=== PATIENT | female | born 1990 | race African-American/Black ===

== ENCOUNTER 2016-08-18 09:47 | Emergency (ER) | payer BC, OTHER ==
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
[2016-08-18] MEDS ORDERED: ACETAMINOPHEN 325 MG TABLET PO ONE (10:40)
[2016-08-18 11:15] LABS: APPEARANCE,URINE CLEAR; BILIRUBIN,URINE NEGATIVE (NEGATIVE); GLUCOSE, URINE NEGATIVE (NEGATIVE); KETONES,URINE NEGATIVE (NEGATIVE); LEUKOCYTE ESTERASE,URINE NEGATIVE (NEGATIVE); NITRITE,URINE NEGATIVE (NEGATIVE); PROTEIN,URINE NEGATIVE (NEGATIVE); URINE SPECIFIC GRAVITY 1.016; UROBILINOGEN,URINE NEGATIVE mg/dL (<2.0)
[2016-08-18 12:59] VITALS: BP 110/68
== END 2016-08-18 13:00 | disposition home or self-care (01) ==
LOC: ER 09:47
DX: R07.81 Pleurodynia (principal); M54.5 Low back pain
CPT/HCPCS: 81001; 87086; 99283

== ENCOUNTER 2017-09-04 08:29 | Emergency (ER) | payer OTHER, MEDICAID ==
[2017-09-04] MEDS ORDERED: NORMAL SALINE 1000 ML 1,000 ML IV ONE (08:50)
--- NOTE | 2017-09-04 09:03 | EKG REPORT ---
SEVERITY:- ABNORMAL ECG - SINUS RHYTHM NONSPECIFIC T ABNORMALITIES, ANTERIOR LEADS : Confirmed by: Mar Rosenthal 04-Sep-2017 09:01:59
[2017-09-04 09:12] LABS: ALANINE AMINOTRANSFERASE 21 U/L (9-52); ALBUMIN 3.7 g/dL (3.5-5.0); ALKALINE PHOSPHATASE 26 U/L (38-126); ANION GAP 8 (5-19); ASPARTATE AMINO TRANSFERASE 32 U/L (14-36); BILIRUBIN,DIRECT 0.4 mg/dL (0.0-0.4); BILIRUBIN,TOTAL 0.8 mg/dL (0.2-1.3); BLOOD UREA NITROGEN 12 mg/dL (7-20); CALCIUM 8.8 mg/dL (8.4-10.2); CARBON DIOXIDE 21 mmol/L (22-30); CHLORIDE 108 mmol/L (98-107); CREATINE KINASE 101 U/L (30-135); GLUCOSE 100 mg/dL (75-110); POTASSIUM 3.8 mmol/L (3.6-5.0); SODIUM 137.1 mmol/L (137-145); TOTAL PROTEIN 7.1 g/dL (6.3-8.2)
[2017-09-04 09:15] LABS: ABSOLUTE LYMPHOCYTES (AUTO) 0.6 10^3/uL (0.5-4.7); ABSOLUTE MONOCYTES (AUTO) 0.2 10^3/uL (0.1-1.4); ABSOLUTE NEUT (AUTO) 4.3 10^3/uL (1.7-8.2); BASOPHILS % (AUTO) 0.1 % (0-2); HEMATOCRIT 31.3 % (36.0-47.0); HEMOGLOBIN 10.8 g/dL (12.0-15.5); LYMPHOCYTES % (AUTO) 11.6 % (13-45); MEAN CORPUSCULAR HEMOGLOBIN 32.9 pg (27.0-33.4); MEAN CORPUSCULAR HGB CONC 34.5 g/dL (32.0-36.0); MEAN CORPUSCULAR VOLUME 95 fl (80-97); MONOCYTES % (AUTO) 4.2 % (3-13); PLATELET COUNT 165 10^3/uL (150-450); RED BLOOD COUNT 3.29 10^6/uL (3.72-5.28); RED CELL DISTRIBUTION WIDTH 13.4 % (11.5-14.0); SEGMENTED NEUTROPHILS % (AUTO) 84.1 % (42-78); TOTAL CELLS COUNTED % (AUTO) 100 %; WHITE BLOOD COUNT 5.1 10^3/uL (4.0-10.5)
[2017-09-04 09:29] LABS: CREATINE KINASE MB 0.83 ng/mL (<4.55)
[2017-09-04 09:30] LABS: TROPONIN I < 0.012 ng/mL
[2017-09-04] MEDS ORDERED: ACETAMINOPHEN 325 MG TABLET PO ONE (09:51)
[2017-09-04 11:35] LABS: APPEARANCE,URINE SLIGHTLY-CLOUDY; BILIRUBIN,URINE NEGATIVE (NEGATIVE); COLOR,URINE YELLOW; GLUCOSE, URINE NEGATIVE (NEGATIVE); KETONES,URINE NEGATIVE (NEGATIVE); LEUKOCYTE ESTERASE,URINE NEGATIVE (NEGATIVE); NITRITE,URINE NEGATIVE (NEGATIVE); PROTEIN,URINE NEGATIVE (NEGATIVE); URINE SPECIFIC GRAVITY 1.027; UROBILINOGEN,URINE NEGATIVE mg/dL (<2.0)
--- NOTE | 2017-09-04 11:45 | ER Document Report ---
ED General - General Chief Complaint: Syncope Stated Complaint: POSSIBLE SYNCOPE Time Seen by Provider: 09/04/17 08:49 TRAVEL OUTSIDE OF THE [place] IN LAST 30 DAYS: No - HPI Patient complains to provider of: Near-syncope Notes: Patient coming in for near syncopal episode. Patient is approximately 20-23 weeks . Patient states night prior after eating dinnerFelt nauseous and had multiple bouts of vomiting similar episodes earlier this morning. Patient states she was at work when she felt dizzy in her head and went to lie down the floor. Patient states she did black out but does remember people running towards her and hearing people talk around her. Patient states she has passed out prior to this episode however this been many years ago. Patient is a . Patient states she been trying to drink water as recommended by her OB /[employer]PER[employer] however does not like the taste of water. Patient denies any chest pain abdominal pain prior to during or after near syncopal episode. Patient resting comfortably right now complaining only of a slight headache. Otherwise patient denies any other past medical history. - Related Data Allergies/Adverse Reactions: No Known Allergies Allergy (Verified 09/04/17 08:31) Past Medical History - Social History Smoking Status: Unknown if Ever Smoked Family History: Reviewed & Not Pertinent Patient has suicidal ideation: No Patient has homicidal ideation: No Renal/ Medical History: Denies: Hx Peritoneal Dialysis - Immunizations Hx Diphtheria, Pertussis, Tetanus Vaccination: Yes Review of Systems - Review of Systems Constitutional: No symptoms reported EENT: No symptoms reported Cardiovascular: Syncope Respiratory: No symptoms reported Gastrointestinal: No symptoms reported Genitourinary: No symptoms reported Female Genitourinary: No symptoms reported Musculoskeletal: No symptoms reported Skin: No symptoms reported Hematologic/Lymphatic: No symptoms reported Neurological/Psychological: No symptoms reported -: Yes All other systems reviewed and negative Physical Exam - Vital signs Vitals: Temp Pulse Resp BP Pulse Ox 99.0 F 96 16 116/68 100 09/04/17 08:56 09/04/17 08:56 09/04/17 08:56 09/04/17 08:56 09/04/17 08:56 Interpretation: Normal - General General appearance: Appears well, Alert - HEENT Head: Normocephalic, Atraumatic Eyes: Normal Pupils: PERRL - Respiratory Respiratory status: No respiratory distress Chest status: Nontender Breath sounds: Normal Chest palpation: Normal - Cardiovascular Rhythm: Regular Heart sounds: Normal auscultation Murmur: No - Abdominal Inspection: Gravid female Distension: No distension Bowel sounds: Normal Tenderness: Nontender Organomegaly: No organomegaly - Back Back: Normal, Nontender - Extremities General upper extremity: Normal inspection, Nontender, Normal color, Normal ROM , Normal temperature General lower extremity: Normal inspection, Nontender, Normal color, Normal ROM , Normal temperature, Normal weight bearing. No: Marciano's sign - Neurological Neuro grossly intact: Yes Cognition: Normal Orientation: AAOx4 Sheree Coma Scale Eye Opening: Spontaneous Sheree Coma Scale Verbal: Oriented Sheree Coma Scale Motor: Obeys Commands Sheree Coma Scale Total: 15 Speech: Normal Motor strength normal: LUE, RUE, LLE, RLE Sensory: Normal - Psychological Associated symptoms: Normal affect, Normal mood - Skin Skin Temperature: Warm Skin Moisture: Dry Skin Color: Normal Course - Re-evaluation Re-evalutation: 09/04/17 13:46 Orthostatics performed by EMS were positive. Patient was the IV fluids here. Bicarb 21 more likely due to dehydration. Patient was able tolerate p.o. here in the ER. heart tones were at 153. No signs of any other obvious distress or critical etiology. Patient will be discharged home follow-up with her [employer] REPAIR[employer]. Patient was encouraged to drink plenty of fluids for the next few days. Patient was given Reglan for her nausea vomiting. Possible underlying viral etiology or foodborne illness - Vital Signs Vital signs: Temp Pulse Resp BP Pulse Ox 98.4 F 96 8 L 113/59 L 99 09/04/17 11:00 09/04/17 08:56 09/04/17 11:01 09/04/17 11:00 09/04/17 11:01 - Laboratory Result Diagrams: 09/04/17 08:08 09/04/17 08:08 Laboratory results interpreted by me: 09/04/17 09/04/17 09/04/17 08:08 08:08 11:04 RBC 3.29 L Hgb 10.8 L Hct 31.3 L Seg Neutrophils % 84.1 H Lymphocytes % 11.6 L Chloride 108 H Carbon Dioxide 21 L Alkaline Phosphatase 26 L Urine Ascorbic Acid 20 H Discharge - Discharge Clinical Impression: Dehydration, Nausea/vomiting in , Near syncope Condition: Good Disposition: HOME, SELF-CARE Instructions: Dehydration ([facility]), Near Syncopal Episode ([facility]), Vomiting ([facility]) Additional Instructions: your episode today was caused by dehydration. Her laboratory values only shows signs of dehydration no other signs or critical etiology. Your heart tones are within normal limits. Recommend using the Reglan as prescribed for any nausea vomiting. Please make sure you are drinking plenty of fluids to stay hydrated follow-up with your [employer] primary care physician as scheduled. Return to the ER for any further complications. For nausea and vomiting during I recomment: Start with 10-12.5 mg of pyridoxine (vitamin B6) three times a day for 2 days. If not fully effective, Increase to 12.5 mg of pyridoxine four times a day for 2 days. If not fully effective, Increase to 25 mg of pyridoxine three times a day for 2 days. If not fully effective, Continue 25 mg pyridoxine 3 times a day, and add 12.5 mg of doxylamine before bedtime each day for 2 days. If not fully effective, Continue 25 mg pyridoxine 3 times a day, and take 12.5 mg of doxylamine twice a day. If not fully effective, Continue 25 mg pyridoxine 3 times a day, and take 12.5 mg of doxylamine three times a day. If not fully effective, Continue 25 mg pyridoxine 3 times a day, and 12.5 mg of doxylamine 3 times a day , while adding Emetrol, one to two tablespoons (15-30 cc) taken once or twice a day as needed. (Emetrol is an [id number] mixture of sugar syrups and phosphoric acid [phosphorylated carbohydrate solution]) that acts by soothing the actual wall of the gastrointestinal tract). If not fully effective, Consult with your doctor. Prescriptions: Metoclopramide HCl [Reglan] 5 mg PO Q6 #30 tablet Forms: Return to Work Referrals: CAITLIN FREEMAN MD [Primary Care Provider] - Follow up as needed
[2017-09-04 11:53] VITALS: BP 113/59
== END 2017-09-04 11:50 | disposition home or self-care (01) ==
LOC: ER 08:29
DX: O26.892 Other specified pregnancy related conditions, second trimester (principal); E86.0 Dehydration; R55 Syncope and collapse; O21.2 Late vomiting of pregnancy; Z3A.22 22 weeks gestation of pregnancy
CPT/HCPCS: 36415; 80053; 81001; 82550; 82553; 84484; 85025; 93005; 93010; 99284